=== PATIENT | male | born 1950 | race Caucasian/White ===

== ENCOUNTER → 2021-06-25 08:54 | Outpatient (CLI) | payer MEDICARE, SELFPAY ==
--- NOTE | ~2021-06-25 | XR_ITS ---
EXAMINATION: XR lumbar spine min 4V EXAM DATE: 06/25/2021 09:23 INDICATION: M54.50 - Low back pain, unspecified . TECHNIQUE: Lumber spine frontal, lateral, bilateral oblique projections. Coned down frontal and lat eral L5-S1 lumbar projections for interpretation. There is no prior study for comparison. FINDINGS: There is moderate to severe loss of the L4-5 disc height, moderate at L5-S1 and mild to mod erate at the other thoracolumbar levels. Moderate to severe lumbar facet arthropathy. The vertebral b odies are aligned in the AP dimension. No spondylolysis. No endplate erosive change. There are no acu te fractures identified. Mild lumbar levoscoliosis. Sacrum, sacroiliac joints, sacral arcuate lines a re intact. Paraspinal soft tissue is unremarkable. IMPRESSION: Moderate to severe facet arthropathy and L4-5 disc disease. Reviewed, dictated and finalized at location . [employer]
== END ==
PROVIDERS: PCP Family Medicine; Visit Provider Family Medicine
DX: M54.50 Low back pain, unspecified (principal); M51.9 Unspecified thoracic, thoracolumbar and lumbosacral intervertebral disc disorder; M12.88 Other specific arthropathies, not elsewhere classified, other specified site
CPT/HCPCS: 72110